=== PATIENT | male | born 1970 | race Caucasian/White ===

== ENCOUNTER 2021-04-10 00:54 | Day surgery (SDC) | payer OTHER, SELFPAY ==
[2021-03-24 14:03] VITALS: BMI 25.1
--- NOTE | 2021-04-07 15:17 | PM.HPGS ---
History of Present Illness History of Present Illness Consent: Risks, benefits, and alternatives have been discussed and questions answered. Patient agrees to proceed with procedure. Chief complaint: neoplasm screening, fam hx colon CA Narrative: Ty Ramsey Jr. is a 50 year old male referred for colon cancer screening Review of Systems Review of Systems: All systems reviewed & are unremarkable except as noted in HPI and below PMFSH Past Medical History Medical History Allergic rhinitis Dupuytrens contracture Joint stiffness Wellness examination Family History Family History Father Carcinoma of colon Other Family history of malignant neoplasm Social History Social History Smoking status: Never smoker Alcohol intake: current Alcohol use details: social drinker Substance use: never Substance use type: does not use Living arrangements: with family Gender identity (if verbalized by the patient): Male Spiritual care concerns: No Meds Home Medications and Allergies Home Medications Medication Instructions Recorded Confirmed Type No Home Medications 01/11/20 03/24/21 History Allergies Allergy/AdvReac Type Severity Reaction Status Date / Time No Known Allergies Allergy Verified 04/10/21 10:22 Exam Resp: Auscultation: clear to auscultation bilaterally Cardio: Rate: regular rate Rhythm: regular rhythm GI: GI Palp: Yes Soft to palpation and No Tenderness to palpation present (GI) Assessment and Plan Assessment and plan (1) Colon cancer screening: Code(s): Z12.11 - Encounter for screening for malignant neoplasm of colon Status: Acute Assessment and Plan: Colonoscopy with possible biopsy or polypectomy or cautery or injection of substances.
--- NOTE | 2021-04-07 18:30 | WPDANESEPPF ---
Anes - Initial Pre Proc Eval Procedure: Operation Date: 04/10/21 11:30 Proposed Procedures p Screening Colonoscopy - Pastor Quan MD Date/Time: 04/07/21 18:30 Surgeon: Pastor Quan MD Pre Op Diagnosis: neoplasm screening, fam hx colon CA Patient Data Age: 50 Gender: M Height: 1.78 m Weight: 79.5 kg Allergies Allergy/AdvReac Type Severity Reaction Status Date / Time No Known Allergies Allergy Verified 04/10/21 10:22 Home Medications Medication Instructions Recorded Confirmed Type No Home Medications 01/11/20 03/24/21 History Patient hx anesthesia problems: none Family hx anesthesia problems: none Results Review: All pre-operative results and documents have been reviewed as part of the pre-operative evaluation. [facility] Past Medical History Medical History (Updated 04/07/21 @ 15:18 by Pastor Quan MD) Allergic rhinitis Dupuytrens contracture Joint stiffness Wellness examination Family History Family History (System 12/15/20 @ 08:13 by Stephanie Nelson) Father Carcinoma of colon Other Family history of malignant neoplasm Social History Social History (System 12/15/20 @ 08:13 by Stephanie Nelson) Smoking status: Never smoker Alcohol intake: current Alcohol use details: social drinker Substance use: never Substance use type: does not use Living arrangements: with family Gender identity (if verbalized by the patient): Male Spiritual care concerns: No Anes - Eval Final PreProcedure Day of Procedure 04/07/21 18:30 Patient weight: overweight Heart: regular rate and rhythm Lungs: clear to auscultation and normal air movement Airway: Mallampati scale class II Neurological: alert and oriented Last oral intake: >/= 8 hours ASA classification: I Emergent: no Anesthetic plan: proceed Anesthesia type and monitoring: general GIVS and standard monitoring Results Review: All pre-operative results and documents have been reviewed as part of the pre-operative evaluation. Informed Consent: The patient's anesthetic plan and its attendant risks and benefits were discussed with the patient/family/POA. Questions were solicited and answers provided to the satisfaction of the patient/family/POA.
[2021-04-10 10:23] VITALS: BP 128/106; PULSE 76; RESP 76; TEMP 36.7; BMI 26.5
[2021-04-10] MEDS: LACTATED RINGERS 1,000 ML 150 ML IV CONT (10:35)
[2021-04-10 11:19] VITALS: BP 106/75; PULSE 71; RESP 32; O2SAT 96
[2021-04-10 11:29] VITALS: BP 115/79; PULSE 78; RESP 17; O2SAT 97
[2021-04-10 11:31] VITALS: BP 119/83; PULSE 77; RESP 15; O2SAT 98
== END 2021-04-10 11:54 | disposition home or self-care (01) ==
PROVIDERS: PCP Family Medicine; Visit Provider Internal Medicine Gastroenterology
PROC: 0DJD8ZZ Inspection of Lower Intestinal Tract, Via Natural or Artificial Opening Endoscopic (ICD-10-PCS; CPT 45378; principal; 2021-04-10 11:30)
DX: Z12.11 Encounter for screening for malignant neoplasm of colon (principal); Z80.0 Family history of malignant neoplasm of digestive organs; M72.0 Palmar fascial fibromatosis [Dupuytren]
CPT/HCPCS: 45378; J2704; J7120

== ENCOUNTER 2021-11-23 08:03 | Outpatient (CLI) | payer OTHER, SELFPAY | END 2021-11-23 08:04 | disposition home or self-care (01) | LOC: ANHSURGERY 08:06 | PROVIDERS: PCP Family Medicine; Visit Provider Urology | DX: Z01.812 Encounter for preprocedural laboratory examination (principal); N50.3 Cyst of epididymis | CPT/HCPCS: 87086 ==

== ENCOUNTER 2021-11-28 00:25 | Day surgery (SDC) | payer OTHER, SELFPAY ==
[2021-11-21 13:30] VITALS: BMI 28.5
--- NOTE | 2021-11-21 13:34 | PC.NURSE ---
Report to the Outpatient Waiting Room, entrance under the green pavilion located off [facility], at time 0600 on date _11-28-21_. OR Time: _729. - You and your visitor will be asked a series of questions to screen for COVID 19 for your protection. - Only one visitor is allowed at this time. - The patient visitor is requested to leave or wait in car when not with patient. - A mask is required within the hospital. Patients may have clear liquids (water, carbonated beverages, clear teas, apple juice) until 3 hours prior to surgery with a maximum of 20 ounces. - No food from midnight until time of surgery Take the following medications with a SIP of water the morning of surgery: __None Medications to discontinue per physician None Date to take last dose Please no make-up, nail slovenian, hairspray, perfume, deodorant, or body powder the day of surgery. No jewelry (including any body piercings) or valuables the day of surgery, leave them at home. Please take a shower or bath the night before, or the morning of, surgery with an antibacterial soap. Wear comfortable, loose fitting clothing. Children are encouraged to wear pajamas. - Jewelry must be removed prior to entering the operating room. Rings and piercings that are not removed may be cut off. - The hospital will not accept responsibility for valuables. - Please leave all valuables, including medications, at home the day of surgery. If you are going home after surgery, a licensed heavy truck driver must drive you home. - NO public transportation without another adult. - We recommend that an adult stay with you for 24 hours following discharge. - We also recommend that you do not drive, make important decision, drink alcoholic beverages, or take any drugs that were not prescribed by your health care provider for at least 24 hours after your discharge time. Follow any additional instructions given to you from your surgeon. If you or anyone in your household have experienced Covid symptoms in the past week, please notify your surgeon or the nurse liaison at the phone number below for possible testing. Telephone instructions given to ___Patient and asked if any additional questions and then verbalized understanding. Patient advised to call surgeon office or pre surgery nurse liaison [phone] if any additional questions.
--- NOTE | 2021-11-27 13:42 | WPDANESEPPF ---
Anes - Initial Pre Proc Eval Procedure: Operation Date: 11/28/21 07:30 Proposed Procedures p Excision Right Spermatocele, - Ganesh Hines MD s Orchiopexy, Scrotal Exploration - Ganesh Hines MD Date/Time: 11/27/21 13:42 Surgeon: Ganesh Hines MD Pre Op Diagnosis: epididymal cyst Patient Data Age: 51 Gender: M Height: 1.75 m Weight: 87.7 kg Allergies Allergy/AdvReac Type Severity Reaction Status Date / Time No Known Allergies Allergy Verified 11/21/21 13:30 Home Medications Medication Instructions Recorded Confirmed Type No Home Medications 01/11/20 11/21/21 History Patient hx anesthesia problems: none Family hx anesthesia problems: none Results Review: All pre-operative results and documents have been reviewed as part of the pre-operative evaluation. [facility] Past Medical History Medical History (Updated 10/09/21 @ 15:30 by Devan Weston MD) Allergic rhinitis Dupuytrens contracture HLD (hyperlipidemia) Joint stiffness Wellness examination Family History Family History Father Carcinoma of colon Other Family history of malignant neoplasm Social History Social History Smoking status: Never smoker Alcohol intake: current Drinks per week: 1 Alcohol use details: social drinker Substance use: never Substance use type: does not use Living arrangements: with family Gender identity (if verbalized by the patient): Male Spiritual care concerns: No Anes - Eval Final PreProcedure Day of Procedure 11/27/21 13:42 Patient weight: overweight Heart: regular rate and rhythm Lungs: clear to auscultation and normal air movement Airway: Mallampati scale class II Neurological: alert and oriented Last oral intake: >/= 8 hours ASA classification: II Emergent: no Anesthetic plan: proceed Anesthesia type and monitoring: general LMA and standard monitoring Results Review: All pre-operative results and documents have been reviewed as part of the pre-operative evaluation. Informed Consent: The patient's anesthetic plan and its attendant risks and benefits were discussed with the patient/family/POA. Questions were solicited and answers provided to the satisfaction of the patient/family/POA.
[2021-11-28] VITALS (8 sets, daily range): BP systolic 105–136; BP diastolic 70–90; PULSE 59–84; RESP 12–20; TEMP 36.2–36.3; O2SAT 97–100
[2021-11-28] MEDS: LACTATED RINGERS 1,000 ML 30 ML IV CONT (06:58)
--- NOTE | 2021-11-28 07:05 | WPDHPUPDATE1 ---
History and Physical Update Update Date/Time: 11/28/21 07:05 History and Physical has been reviewed, including an updated exam of the patient. There are NO changes in the patient's condition. Risks, benefits, and alternatives have been discussed and questions answered. Patient agrees to proceed with procedure. Proceed with scrotal exploration, excision of right spermatocele and orchiopexy
[2021-11-28] MEDS: ceFAZolin 2 GM/D5W 50 ML 2 GM/50 ML BAG IVPB (07:24)
[2021-11-28] MEDS: BUPIVACAINE HCL 0.25% PF 30 ML VIAL INFILTRATE (08:28)
--- NOTE | 2021-11-28 08:34 | W.PM.PROC2 ---
Procedure Note - Detailed Date of Procedure 11/28/21 Pre-op Diagnosis epididymal cyst Post-op Diagnosis Same (Epididymal cyst/spermatocele, right hydrocele,) Procedure Performed Scrotal exploration with right hydrocelectomy, excision of right spermatocele/epididymal cyst, right orchiopexy Surgeon Ganesh Hines MD Anesthesia General Description of Procedure Patient is taken to the operative suite correctly identified. Once anesthesia was obtained was prepped and draped usual sterile fashion. Transverse scrotal incision was made on the right side. This carried down to the tunical layers. The contents were brought out into the operative field. Patient had a small hydrocele which was opened and excised. The edges were fulgurated. The large epididymal cyst/spermatocele was then dissected down to its origination at the head of the epididymis. Hemostat was placed at this location in the entire cyst was excised intact. We then suture ligated using 3-0 chromic. Quarter-inch [place] drain was then placed in the right hemiscrotum through a separate stab incision. This was secured using 3-0 chromic. The appendix testis was fulgurated. An orchiopexy was then performed in a three-point fashion using 3-0 Ethibond. [place] was closed using 3-0 chromic. Skin was anesthetized 1% lidocaine. Skin was closed using 3-0 chromic in a running fashion. Patient tolerated procedure well without any complications taken recovery stable condition. Will remove the drain in 2-3 days if there is minimal drainage. He will follow-up in 2-3 weeks time. Estimated Blood Loss 0 Drains Yes Packing No Pathology Yes Complications No immediate complications Condition Stable Disposition PACU
[2021-11-28] MEDS: oxyCODONE HCL (*CRX) 5 MG TAB IR PO (09:40)
== END 2021-11-28 10:26 | disposition home or self-care (01) ==
PROVIDERS: PCP Family Medicine; Visit Provider Urology
PROC: (CPT 54840; principal; 2021-11-28 07:30)
PROC: (CPT 55040; 2021-11-28 07:30)
DX: N43.41 Spermatocele of epididymis, single (principal); N43.3 Hydrocele, unspecified
CPT/HCPCS: 55040; 54640; 87086; 88302; 88304; A9270; J0690; J1100; J2250; J2405; J2704; J3010; J7120

== ENCOUNTER 2022-06-14 01:14 | Day surgery (SDC) | payer OTHER, SELFPAY ==
[2022-06-11 09:45] VITALS: BMI 27.3
--- NOTE | 2022-06-11 09:49 | PC.NURSE ---
Report to the Outpatient Waiting Room, entrance under the green pavilion located off [facility], at time 0600 on date 06/14/22. Planned Procedure Time: 0730. Time changes happen often and if your time is changed the preop area will call you the afternoon before. - You and your visitor will be asked to self-screen and do not enter if you have any COVID symptoms. - Only one visitor is requested with a max of two and NO children visitors are allowed at this time. - The patient visitor may be requested to leave or wait in car when not with patient due to distancing restrictions. - A mask is REQUIRED within the hospital. Patients may have clear liquids (water, carbonated beverages, clear teas, apple juice) until 3 hours prior to surgery with a maximum of 20 ounces. - No food from midnight until time of surgery Take the following medications with a SIP of water the morning of surgery: NONE Medications to discontinue per physician: N/A Date to take last dose: N/A Please no make-up, nail british, hairspray, perfume, deodorant, or body powder the day of surgery. No jewelry (including any body piercings) or valuables the day of surgery, leave them at home. Please take a shower or bath the night before, or the morning of, surgery with an antibacterial soap. Wear comfortable, loose fitting clothing. - Jewelry must be removed prior to entering the operating room. Rings and piercings that are not removed may be cut off. - The hospital will not accept responsibility for valuables. - Please leave all valuables, including medications, at home the day of surgery. If you are going home after surgery, a licensed delivery driver/customer service must drive you home. - NO public transportation without another adult if you receive anesthesia. - We recommend that an adult stay with you for 24 hours following discharge. - We also recommend that you do not drive, make important decision, drink alcoholic beverages, or take any drugs that were not prescribed by your health care provider for at least 24 hours after your discharge time. Follow any additional instructions given to you from your surgeon. If you or anyone in your household have experienced Covid symptoms in the past week, please notify your surgeon or the nurse liaison at the phone number below for possible testing. Telephone instructions given to PT - MONICA NULL and asked if any additional questions and then verbalized understanding. Patient advised to call surgeon office or pre surgery nurse liaison [phone] if any additional questions.
[2022-06-14] VITALS (7 sets, daily range): BP systolic 104–134; BP diastolic 64–88; PULSE 81–108; RESP 12–16; TEMP 36.6; O2SAT 94–97
--- NOTE | 2022-06-14 06:57 | WPDANESEPPF ---
Anes - Initial Pre Proc Eval Procedure: Operation Date: 06/14/22 07:30 Proposed Procedures p Partial Palmar Fasciectomy Left Hand - Konstantin Fatima MD Date/Time: 06/14/22 06:57 Surgeon: Konstantin Fatima MD Pre Op Diagnosis: Dupuytrens Bilateral Hands Patient Data Age: 51 Gender: M Height: 1.75 m Weight: 86.7 kg Last Vital Signs Temp 36.6 C 06/14/22 06:47 Pulse 81 06/14/22 06:47 Resp 16 06/14/22 06:47 BP 104/64 06/14/22 06:47 Pulse Ox 96 06/14/22 06:47 O2 Del Method Room Air 06/14/22 06:47 Allergies Allergy/AdvReac Type Severity Reaction Status Date / Time No Known Allergies Allergy Verified 06/14/22 06:18 Home Medications Medication Instructions Recorded Confirmed Type levocetirizine 5 mg tablet (Xyzal) 5 mg PO DAILY PRN Allergy Symptoms 06/11/22 06/14/22 History loratadine 10 mg tablet (Claritin) 10 mg PO DAILY PRN Allergy Symptoms 06/11/22 06/14/22 History Patient hx anesthesia problems: none Family hx anesthesia problems: none Results Review: All pre-operative results and documents have been reviewed as part of the pre-operative evaluation. [facility] Past Medical History Medical History Allergic rhinitis Dupuytrens contracture HLD (hyperlipidemia) Joint stiffness Wellness examination Family History Family History Father Carcinoma of colon Other Family history of malignant neoplasm Social History Social History Smoking status: Never smoker Alcohol intake: current Drinks per week: 1 Alcohol use details: 2/MONTH Substance use: never Substance use type: does not use Living arrangements: with family Gender identity (if verbalized by the patient): Male Spiritual care concerns: No Anes - Eval Final PreProcedure Day of Procedure 06/14/22 06:57 Patient weight: overweight Heart: regular rate and rhythm Lungs: clear to auscultation Airway: Mallampati scale class II Neurological: alert and oriented Last oral intake: >/= 8 hours ASA classification: II Emergent: no Anesthetic plan: proceed Anesthesia type and monitoring: general LMA and standard monitoring Results Review: All pre-operative results and documents have been reviewed as part of the pre-operative evaluation. Informed Consent: The patient's anesthetic plan and its attendant risks and benefits were discussed with the patient/family/POA. Questions were solicited and answers provided to the satisfaction of the patient/family/POA.
[2022-06-14] MEDS: LACTATED RINGERS 1,000 ML 30 ML IV CONT (07:15)
--- NOTE | 2022-06-14 07:21 | WPDHPUPDATE1 ---
History and Physical Update Update Date/Time: 06/14/22 07:21 History and Physical has been reviewed, including an updated exam of the patient. There are NO changes in the patient's condition. Risks, benefits, and alternatives have been discussed and questions answered. Patient agrees to proceed with procedure.
--- NOTE | 2022-06-14 09:54 | W.PM.PROC2 ---
Procedure Note - Detailed Date of Procedure 06/14/22 Pre-op Diagnosis Dupuytrens Bilateral Hands Post-op Diagnosis Same Procedure Performed Left partial palmar fasciectomy for Dupuytren's contracture Surgeon Konstantin Fatima MD [employer] Anesthesia General Indications Significant contractures in the thumb palm and ring finger Description of Procedure The patient's hand was marked in the holding area. He had been unable to take his renal and due to the nature of the cords we felt it was safe to taken to surgery anyway and work around that. The hand was marked and he was taken to the operating room placed supine operating table. Time-out was held and confirmed he was given general endotracheal anesthesia. No antibiotics were given. The extremity was prepped and draped in usual fashion. The extremity was exsanguinated with an Darryl wrap and the tourniquet inflated to 250 mmHg. The patient's concerns were mostly in the thumb and ring finger has significant dimpling in his palm as well with short cords extending to the 3rd and 5th fingers. Markings were made for the cord and the expected access incisions. These included mostly transverse incisions except that extended diagonals were performed on the ring finger over the proximal interphalangeal joint and thumb. The lead hand was utilized. Skin flaps were carefully elevated nodules were particularly troublesome at the metacarpophalangeal joint of the thumb the over the 4th intermuscular septum and crossing the IP joint on the ring finger. The neurovascular bundles were identified at the a spiral cord was noted on the ring finger I the disease tissue was removed and no contractures remain. The tourniquet was released and the wounds were closed with running 4-0 nylon. I was able to remove the ring from this finger at that point. A bulky bandage was applied. He has discharge instructions in wound care and follow-up i and has a prescription for hydrocodone 5/325 number 7 and cephalexin 500 mg 3 times a day 15. Estimated Blood Loss -5.0 Tourniquet Time 78 Drains No Packing No Pathology None sent Complications No immediate complications Condition Stable Disposition PACU
[2022-06-14] MEDS: ONDANSETRON INJ 4 MG/2 ML VIAL IV PUSH (10:45)
== END 2022-06-14 11:30 | disposition home or self-care (01) ==
PROVIDERS: PCP Family Medicine; Visit Provider Plastic Surgery
PROC: (CPT 26045; principal; 2022-06-14 07:30)
DX: M72.0 Palmar fascial fibromatosis [Dupuytren] (principal)
CPT/HCPCS: 26123; 26125; A9270; J0690; J1100; J2250; J2405; J2704; J3010; J7120